=== PATIENT | female | born 1975 | race Caucasian/White ===

== ENCOUNTER → 2018-01-07 | Outpatient (CLI) | payer BC ==
[~2018-01-07] MED LIST: NKDA; PERCOCET 325 MG1 TA2 PO; VENLAFAXINE75 M1 PO
== END ==
LOC: MC.RAD 13:37
DX: Z12.31 Encounter for screening mammogram for malignant neoplasm of breast (principal); R92.8 Other abnormal and inconclusive findings on diagnostic imaging of breast

== ENCOUNTER → 2018-01-11 | Outpatient (CLI) | payer BC | LOC: MC.RAD 09:23 | DX: N63.11 Unspecified lump in the right breast, upper outer quadrant (principal) ==